=== PATIENT | female | born 1995 | race American Indian/Alaskan Native ===

== ENCOUNTER 2016-08-28 13:59 | Inpatient (IN) | payer MEDICAID ==
[2016-08-28] MEDS ORDERED: NITRATEST PAPER MC ONE (15:04)
[2016-08-28] MEDS ORDERED: XYLOCAINE 2% INFILTRATI ONE (15:44)
[2016-08-28] MEDS ORDERED: PHENERGAN PO PRN (15:44)
[2016-08-28] MEDS ORDERED: ePHEDrine SULFATE IV PRN ×2 (15:44→22:16)
[2016-08-28] MEDS ORDERED: BRETHINE IVP PRN (15:44)
[2016-08-28] MEDS ORDERED: STADOL IV PRN (15:44)
[2016-08-28] MEDS ORDERED: MINERAL OIL PO PRN (15:44)
--- NOTE | 2016-08-28 15:44 | History and Physical Report ---
History of Present Illness Date of examination: 08/28/16 History of present illness: Patient presented to triage with complaints of leaking fluid. Initial exam by RN revealed intact bag cervix 3 cm dilated. During observation patient had a variable deceleration and actually tracing reactivity decreased. HEENT being admitted due to me in early labor category 2 tracing. Patient course has been relatively uneventful Menstrual history Regularity: regular Menses every: 28 days Duration: 5 LMP: 11/27/2015 LMP reliability: definite LMP character: heavier test type: urine test Date: 01/18/2016 BC at conception: none Planned ? yes EDC Calculations LMP: 09/02/2016 EDC Confirmation: 09/02/2016 Past History : 2 Aborta: 1 Elect. Ab: 1 # 1 Delivery date: 11/25/2014 Delivery type: EAB Past Surgical History: D&C Past Medical History Anesthesia Complications: negative Anemia: negative Autoimmune Disorder: negative Bleeding Disorder: negative Blood Transfusions: negative Breast Disease: negative Diabetes: negative Heart Disease: negative Hypertension: negative Hepatitis/Liver Disease: negative Kidney Disease/UTI: negative Neurologic/Epilepsy/Migraines: negative Phlebitis/Varicosities: negative Psychiatric: negative Pulmonary Disease/Asthma: negative Thyroid Disease: negative Hospitalizations: negative Surgery (Non-scheduling administrator): negative Abnormal PAP: negative DARRIAN Exposure: negative Infertility: negative Uterine Anomaly: negative Uterine Surgery (not C/S): negative Other Gynecologic Problems: negative Infection History Hx of STD: none HIV Risk Eval: low risk Hepatitis B Risk Eval: low risk Personal hx. of genital herpes: no Partner hx. of genital herpes: no Varicella/Chicken Pox Status: Previous Disease TB Risk: no Genetic History Congenital Heart Defect: Mom: no Dad: no Delia Disease: Mom: no Dad: no Thalassemia Mom: no Dad: no Neural Tube Defect Mom: no Dad: no Down's Syndrome Mom: no Dad: no David-Sachs Mom: no Dad: no Sickle Cell Disease/Trait Mom: no Dad: no Hemophilia Mom: no Dad: no Muscular Dystrophy Mom: no Dad: no Cystic Fibrosis Mom: no Dad: no [place] Chorea Mom: no Dad: no Mental Retardation Mom: no Dad: no Fragile X Mom: no Dad: no Other Genetic/Chromosomal Disorder Mom: no Dad: no Child w/other defect Mom: no Dad: no Enviromental Exposures Xray Exposure: no Medication, drug, or alcohol use since LMP: no Chemical/Other Exposure: no Exposure to Cat Liter: yes Hx of Parvovirus (Fifth Disease): no Current Allergies (reviewed today): No known allergies Past History Past Medical History: other (see HPI) Past Surgical History: other (see HPI) 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) Family/Genetic History: other (see HPI) Social history: other (see HPI) - Obstetrical History Expected Date of Delivery: 09/02/16 Actual Gestation: 39 Week(s) 2 Day(s) : 1 Para: 0 Hx # Term Pregnancies: 0 Number of Pregnancies: 0 Spontaneous Abortions: 0 Induced : 1 Number of Living Children: 0 Medications and Allergies Allergies Allergy/AdvReac Type Severity Reaction Status Date / Time No Known Allergies Allergy Unverified 08/28/16 14:18 - Vital Signs Vital signs: Vital Signs Pulse BP 94 H 128/69 08/28/16 14:26 08/28/16 14:26 Temp Pulse Resp BP Pulse Ox 99.0 F 94 H 18 134/78 08/28/16 14:39 08/28/16 15:26 08/28/16 14:39 08/28/16 15:26 - Physical Exam Breasts: Positive: deferred Cardiovascular: Regular rate Lungs: Positive: Normal air movement Abdomen: Positive: normal appearance, soft Genitourinary (Female): Positive: normal external genitalia, normal perenium Vagina: Positive: normal moisture Anus/Rectum: Positive: normal perianal skin Extremities: Positive: edema - Obstetrical FHR: category 2 Uterine Contraction Monitor Mode: Palpation Cervical Dilatation: 3 Cervical Effacement Percentage: 70 station: -3 Uterine Contraction Pattern: Irregular Uterine Tone Measurement Phase: Resting Uterine Contraction Intensity: Mild Results Result Diagrams: 08/28/16 15:51 All other labs normal. Assessment and Plan - Patient Problems (1) with 39 completed weeks gestation Current Visit: Yes Status: Acute (2) Abnormal test Current Visit: Yes Status: Acute Plan to address problem: We'll admit and observe monitoring with probable augmentation of labor. (3) First stage of labor Current Visit: Yes Status: Acute
[2016-08-28] MEDS ORDERED: PITOCin/NS 20 UNIT/1000ML DRIP 20 UNITS/1,000 ML BAG IV SCH (16:00)
[2016-08-28 16:40] LABS: Hematocrit 28.8 % (30.3-42.9); Hemoglobin 9.1 gm/dl (10.1-14.3); Mean Corpuscular HGB Conc 32 % (30-34); Mean Corpuscular Hemoglobin 27 pg (28-32); Mean Corpuscular Volume 85 fl (79-97); Platelet Count 262 K/mm3 (140-440); Red Cell Distribution Width 14.4 % (13.2-15.2)
[2016-08-28] MEDS: LACTATED RINGERS 1,000 ML IV SCH ×3 (18:22→23:07)
--- NOTE | 2016-08-28 18:41 | Event Note ---
Date: 08/28/16 Artificial rupture membranes with clear fluid. scalp electrode and intrauterine pressure catheter placed. We will watch tracing and augment labor if indicated. Plan discussed with patient and her mother all questions answered
[2016-08-28] MEDS ORDERED: PITOCin/NS 30 UNIT/500ML 30 UNITS/500 ML BAG IV SCH (20:51)
[2016-08-28] MEDS ORDERED: ePHEDrine SULFATE ONE (21:28)
[2016-08-28] MEDS ORDERED: NARCAN 2 MG/2 ML IV PRN (22:16)
--- NOTE | 2016-08-28 22:16 | Anesthesia Consultation ---
Anesthesia Consult and Med Hx Date of service: 08/28/16 - Airway Anesthetic Teeth Evaluation: Good ROM Head & Neck: Adequate Mental/Hyoid Distance: Adequate Mallampati Class: Class II Intubation Access Assessment: Good - Pulmonary Exam CTA: Yes - Cardiac Exam Cardiac Exam: No Murmur - Pre-Operative Health Status ASA Pre-Surgery Classification: ASA2 Proposed Anesthetic Plan: Epidural - Pulmonary Hx Asthma: Yes (no inhaler) COPD: No Hx Pneumonia: No - Cardiovascular System Hx Hypertension: No - Central Nervous System Hx Seizures: No Hx Psychiatric Problems: No - Endocrine Hx Renal Disease: No Hx End Stage Renal Disease: No Hx Hypothyroidism: No Hx Hyperthyroidism: No - Hematic Hx Anemia: No Hx Sickle Cell Disease: No - Other Systems Hx Alcohol Use: No
--- NOTE | 2016-08-28 22:27 | Event Note ---
Date: 08/28/16 Report from RN cx 4cm patient delayed start of pitocin. Now has epidural
[2016-08-28] MEDS ORDERED: fentaNYL-BUPIV 2 MCG/ML-0.125% 200 MCG/100 ML BAG EPIDURAL SCH (23:00)
--- NOTE | 2016-08-29 05:14 | Procedure Note ---
OB Delivery Note - Delivery Date of Delivery: 08/29/16 Surgeon: LINO MOHAN Estimated blood loss: 300cc - Vaginal Delivery position: OA Delivery augmentation: rupture of membranes, pitocin Delivery monitor: external FHT, external uterine, internal FHT, internal uterine Route of delivery: Delivery placenta: spontaneous Episiotomy: none Delivery laceration: 1st degree, vaginal side wall Delivery repair: vicryl Anesthesia: epidural - Infant B at 1 minute: 8 Infant Gender: Male
[2016-08-29] MEDS ORDERED: BENADRYL PO PRN (09:00)
[2016-08-29] MEDS ORDERED: TYLENOL PO PRN ×2 (09:00→09:30)
[2016-08-29] MEDS ORDERED: TUCKS PAD TP PRN (09:00)
[2016-08-29] MEDS ORDERED: DERMOPLAST TP PRN (09:00)
[2016-08-29] MEDS: FEOSOL PO SCH (09:12)
[2016-08-29] MEDS: COLACE PO SCH (09:12)
[2016-08-29] MEDS ORDERED: SODIUM CHLORIDE FLUSH SYRINGE 10 ML IV PRN (09:30)
[2016-08-29] MEDS ORDERED: NORCO 5/325 PO PRN (09:30)
[2016-08-29] MEDS ORDERED: PITOCin/NS 20 UNIT/1000ML DRIP 20 UNITS/1,000 ML BAG IV SCH (09:30)
[2016-08-29] MEDS ORDERED: PHENERGAN PO PRN (09:30)
[2016-08-29] MEDS ORDERED: LANSINOH TP PRN (09:30)
[2016-08-29] MEDS ORDERED: DULCOLAX PR PRN (10:00)
[2016-08-29] MEDS: PRENATAL VITAMIN PO SCH (10:15)
[2016-08-29] MEDS ORDERED: SENOKOT S PO SCH (11:00)
[2016-08-29] MEDS: MOTRIN PO SCH ×2 (13:17→18:10)
[2016-08-29 15:36] LABS: Hematocrit 28.8 % (30.3-42.9); Hemoglobin 9.1 gm/dl (10.1-14.3)
[2016-08-29] MEDS ORDERED: MILK OF MAGNESIA PO PRN (22:00)
[2016-08-30] MEDS: FEOSOL PO SCH ×2 (00:08→09:54)
[2016-08-30] MEDS: MOTRIN PO SCH ×4 (00:08→17:09)
[2016-08-30] MEDS: COLACE PO SCH ×2 (00:32→09:54)
--- NOTE | 2016-08-30 06:45 | Discharge Summary ---
Providers - Providers Date of Admission: 08/28/16 14:00 Date of discharge: 08/30/16 (pt agrees with d/c ) Attending physician: LINO MOHAN 08/29/16 08:44 Consult to Social Contact Worker [CONS] Routine Reason For Exam: assistance with , SNS Primary care physician: LINO MOHAN Hospitalization Reason for admission: active labor Delivery: Episiotomy: none Laceration: 1st degree Incision: normal, dry, intact Other procedures: none complications: none Discharge diagnosis: IUP at term delivered [place] baby: male Hospital course: uncomplicated vaginal delivery Pt requests d/c today No c/o voiced VSS FF below umb Lochia small Perineum slight swelling intact H&H 9.1/28.2 no drop noted Will RX iron po for d/c Pt is asymptomatic. Doing well s/p vag delivery P: d/c today with instructions RTO 4 weeks for PP care. Condition at discharge: Good Disposition: DISCHARGED TO HOME OR SELFCARE - Discharge Diagnoses (1) Vaginal delivery Status: Acute Comment: RTO 4 weeks Plan - Discharge Medications Prescriptions: Docusate Sodium [Colace] 100 mg PO BID PRN #60 capsule PRN Reason: Constipation Ferrous Sulfate [Feosol 325 MG tab] 325 mg PO BID #60 tablet Ibuprofen [Motrin 800 MG tab] 800 mg PO TID PRN #30 tablet PRN Reason: Pain Lidocain2.5%/Prilocai2.5% [Emla] 5 gm TP PRN #1 tube - Provider Discharge Summary Activity: routine, no sex for 6 weeks, no heavy lifting 4 weeks, no strenuous exercise Diet: routine Instructions: routine Additional instructions: [] Smoking cessation referral if applicable(refer to patient education folder for contact #) [] Refer to [facility] Booklet Call your doctor immediately for: * Fever > 100.5 * Heavy vaginal bleeding ( >1 pad per hour) * Severe persistent headache * Shortness of breath * Reddened, hot, painful area to leg or breast * Drainage or odor from incision. * Keep incision clean and dry at all times and follow doctor's instructions regarding bathing/showering - Follow up plan Follow up: LINO MOHAN MD [Primary Care Provider] - 7 Days (Congratulations! Please call [phone] to schedule your visit in 4 weeks and your son's circumcision in 1 week. Bring the EMLA cream with you to his visit. Take medications as prescribed. Call with concerns. )
[2016-08-30 08:26] VITALS: BP 146/66
--- NOTE | 2016-08-30 08:45 | Progress Note ---
Subjective Date of service: 08/30/16 Interval history: 1st day after normal vaginal delivery Patient is in the bed, comfortable. Pain is well controlled with pain meds. No nausea or vomiting. Ambulated well. No residual neurological deficit. No anesthesia complications Objective - Constitutional Vitals: Vital Signs - 12hr 08/30/16 08/30/16 00:00 08:24 Temperature 98.6 F 98.8 F Pulse Rate [ 77 84 Left Radial] Respiratory 16 20 Rate Blood Pressure 133/70 146/66 [Left Arm] - Labs CBC & Chem 7: 08/29/16 15:24 Labs: Abnormal lab results 08/29/16 Range/Units 15:24 Hgb 9.1 L (10.1-14.3) gm/dl Hct 28.8 L (30.3-42.9) %
[2016-08-30] MEDS: PRENATAL VITAMIN PO SCH (09:54)
== END 2016-08-30 18:00 | disposition home or self-care (01) | DRG 775 ==
LOC: TRG 13:59 → LD 14:00 → TRG 16:56 → OB 08-29 07:55
PROVIDERS: ADMIT Obstetrics & Gynecology; ATTEND Obstetrics & Gynecology
PROC: 10E0XZZ Delivery of Products of Conception, External Approach (ICD-10-PCS; principal; 2016-08-29)
PROC: 3E0S3CZ (ICD-10-PCS; principal; 2016-08-29)
PROC: 10907ZC Drainage of Amniotic Fluid, Therapeutic from Products of Conception, Via Natural or Artificial Opening (ICD-10-PCS; principal; 2016-08-29)
PROC: 00HU33Z Insertion of Infusion Device into Spinal Canal, Percutaneous Approach (ICD-10-PCS; principal; 2016-08-29)
PROC: 0HQ9XZZ Repair Perineum Skin, External Approach (ICD-10-PCS; principal; 2016-08-29)
DX: O76 Abnormality in fetal heart rate and rhythm complicating labor and delivery (principal); O70.0 First degree perineal laceration during delivery; Z3A.39 39 weeks gestation of pregnancy; Z37.0 Single live birth
CPT/HCPCS: 36415; 85014; 85018; 85027; 86850; 86900; 86901; 99211; A6250; G0463; J0595; J2590; J7120